=== PATIENT | female | born 1995 | race African-American/Black ===

== ENCOUNTER 2017-05-11 11:33 | Emergency (ER) | payer SELFPAY ==
[~2017-05-11] VITALS: Ht 167.6 cm; Wt 90.5 kg
[2017-05-11 11:34] VITALS: BP 143/88; PULSE 82; RESP 16; TEMP 99.3; O2SAT 100
--- NOTE | 2017-05-11 12:25 | PD ---
HPI Chief Complaint: Cold / Flu Symptoms Time Seen by Provider: 12:02 Travel History International Travel<30 days: No Contact w/Intl Traveler<30days: No Traveled to known affect area: No History of Present Illness HPI This is a 22-year-old female here with nasal congestion, sore throat,, cough 3 days. Septum severity is mild. No aggravating or alleviating factors. She denies fever or chills. No sick contacts or foreign travel. PFSH Past Medical History Medical History: Denies Significant Hx ?: Not LMP: 04/20/17 Social History Tobacco Use: No Allergies-Medications (Allergen,Severity, Reaction): Coded Allergies: No Known Allergies (Verified Allergy, Unknown, 05/11/17) Reported Meds & Prescriptions Reported Meds & Active Scripts Active No Active Prescriptions or Reported Medications Review of Systems Except as stated in HPI: all other systems reviewed are Neg General / Constitutional: No: Fever HENT: Positive: Sore Throat, Congestion Cardiovascular: No: Chest Pain or Discomfort Respiratory: Positive: Cough Gastrointestinal: No: Abdominal Pain Physical Exam Narrative GENERAL: Alert and well-appearing female. SKIN: Warm and dry. No rash. HEAD: Normocephalic. EYES: No injection or drainage. Ears/nose/throat: No TM erythema. Clear nasal discharge. Mild pharyngeal erythema without tonsillar hypertrophy or exudate. NECK: Supple. No meningismus. CARDIOVASCULAR: Regular rate and rhythm RESPIRATORY: Breath sounds equal bilaterally. No accessory muscle use. Data Data Last Documented VS Vital Signs Date Time Temp Pulse Resp B/P (MAP) Pulse Ox O2 Delivery O2 Flow Rate FiO2 05/11/17 11:34 99.3 82 16 143/88 (106) 100 Room Air MDM Medical Decision Making Medical Screen Exam Complete: Yes Emergency Medical Condition: Yes Differential Diagnosis URI, influenza, strep pharyngitis Narrative Course This is a 22-year-old female here with mild URI-like symptoms. She is nontoxic appearing. Symptomatically treatment discussed. Patient verbalizes understanding and agrees to plan Diagnosis Primary Impression: Viral URI Referrals: [facility] Departure Forms: Tests/Procedures, Work Release Enter return to work date: May 12, 2017 Additional Instructions: Tylenol and ibuprofen as needed for pain and fever. Stay well hydrated. Rest. Scripts No Active Prescriptions or Reported Meds Disposition: DISCHARGE HOME Condition: Stable Sarah AbbottP May 11, 2017 12:24
== END 2017-05-11 13:26 | disposition home or self-care (01) ==
LOC: NEPK 11:33
DX: J06.9 Acute upper respiratory infection, unspecified (principal)
CPT/HCPCS: 99282